=== PATIENT | female | born 1930 | race Caucasian/White ===

== ENCOUNTER 2016-08-06 01:53 | Outpatient (CLI) | payer MEDICARE, OTHER | END 2016-08-06 01:54 | disposition critical access hospital (66) | DX: R41.0 Disorientation, unspecified (principal); W18.30XA Fall on same level, unspecified, initial encounter; Y92.003 Bedroom of unspecified non-institutional (private) residence as the place of occurrence of the external cause | CPT/HCPCS: A0425; A0429 ==

== ENCOUNTER 2016-08-06 02:05 | Emergency (ER) | payer MEDICARE, OTHER | END 2016-08-06 03:45 | disposition home or self-care (01) | DX: R19.7 Diarrhea, unspecified (principal); W01.0XXA Fall on same level from slipping, tripping and stumbling without subsequent striking against object, initial encounter; Y92.013 Bedroom of single-family (private) house as the place of occurrence of the external cause; Z66 Do not resuscitate; I10 Essential (primary) hypertension; J45.909 Unspecified asthma, uncomplicated; G62.9 Polyneuropathy, unspecified; K21.9 Gastro-esophageal reflux disease without esophagitis; Z86.010 Personal history of colon polyps; M19.90 Unspecified osteoarthritis, unspecified site ==

== ENCOUNTER 2017-01-03 14:42 | Emergency (ER) | payer MEDICARE, OTHER ==
--- NOTE | 2017-01-03 16:12 | ED Physician Documentation ---
PD HPI Fall - Stated complaint Stated Complaint: HEAD INJ/ R ARM SCRAPE--FELL DOWN STAIRS - Chief complaint Chief Complaint: Neuro - History obtained from History obtained from: Patient, EMS - History of Present Illness Mechanism of injury: Slipped Fall distance: Other (stairs) Where injury occurred: Home Timing - onset: How many minutes ago (30) Injury(ies) location: Head, Right Upper Extremity (skin tear, no pain), Right Lower Extremity (skin tear and lacerations.) Pain level max: 2 Pain level now: 2 Quality of pain: Pain, Aching, Dull Associated symptoms: No: LOC, AMS, Amnesia, Seizures, Ear drainage, Nasal drainage, Neck pain, Weakness, Paresthesias, Dyspnea, Nausea / vomiting, Hematemesis, Abdominal distension Symptoms improve with: Rest Worsens with: Other (nothing) Contributing factors: No: Anticoagulated, Intoxicated - Additional information Additional information: slipped and fell backwards down the stairs, striking her head. Review of Systems Ten Systems: 10 systems reviewed and negative Constitutional: denies: Fever, Chills Eyes: denies: Photophobia Nose: denies: Rhinorrhea / runny nose, Congestion Throat: denies: Sore throat Cardiac: denies: Chest pain / pressure Respiratory: denies: Cough GI: denies: Abdominal Pain, Nausea, Vomiting, Diarrhea Skin: denies: Rash Musculoskeletal: denies: Neck pain, Back pain Neurologic: reports: Headache, Head injury. denies: Focal weakness, Numbness, Confused, Altered mental status, LOC PD PAST MEDICAL HISTORY - Past Medical History Cardiovascular: Hypertension, Arrhythmia Respiratory: Asthma, Pneumonia Neuro: Peripheral neuropathy Endocrine/Autoimmune: None GI: GERD, Colon polyps : Incontinence HEENT: Chronic vision loss Psych: Depression Musculoskeletal: Osteoarthritis, Scoliosis, Other Derm: None - Past Surgical History Past Surgical History: Yes General: Cholecystectomy, Appendectomy, Colonoscopy Ortho: Spine surgery, Other HEENT: Cataracts, Tonsil/Adenoidectomy Derm: Skin cancer surgery - Present Medications Home Medications: Ambulatory Orders Medication Instructions Recorded Confirmed Celecoxib [Celebrex] 200 mg PO DAILY 12/30/13 08/06/16 Duloxetine HCl [Cymbalta] 60 mg PO DAILY 12/30/13 08/06/16 Loratadine [Claritin] 10 mg PO DAILY 12/30/13 08/06/16 Montelukast Sodium [Singulair] 10 mg PO DAILY 12/30/13 08/06/16 Raloxifene [Evista] 60 mg PO DAILY 12/30/13 08/06/16 Pregabalin [Lyrica] 50 mg PO DAILY 08/26/14 08/06/16 Cholecalciferol [Vitamin D3] 2,000 unit PO DAILY 04/28/15 08/06/16 Multivitamin [Multivitamins] 1 cap PO DAILY 04/28/15 08/06/16 Folic Acid 1 tab PO DAILY 05/21/15 08/06/16 Omeprazole 20 mg PO DAILY 05/21/15 08/06/16 diltiaZEM [Cardizem] PO DAILY 08/06/16 - Allergies Allergies/Adverse Reactions: Allergies Allergy/AdvReac Type Severity Reaction Status Date / Time gluten Allergy Intermediate Cramps Verified 01/03/17 15:08 Sulfa (Sulfonamide Allergy Unknown Unknown Verified 01/03/17 15:08 Antibiotics) - Social History Does the pt smoke?: No Smoking Status: Never smoker Does the pt drink ETOH?: No Does the pt have substance abuse?: No - Immunizations Immunizations are current?: Yes - POLST Patient has POLST: No PD ED PE NORMAL - Vitals Vital signs reviewed: Yes - General General: Alert and oriented X 3, No acute distress, Well developed/nourished - HEENT HEENT: PERRL, EOMI, Ears normal, Moist mucous membranes, Pharynx benign, Other ( R parieto-occipital hematoma) - Neck Neck: Supple, no meningeal sign, No bony TTP - Cardiac Cardiac: RRR - Respiratory Respiratory: No respiratory distress, Clear bilaterally - Abdomen Abdomen: Soft, Non tender, Non distended - Back Back: No spinal TTP - Derm Derm: Warm and dry, No rash - Extremities Extremities: No deformity, No tenderness to palpate, Other (2 skin tears to R upper arm, 1 skin tear to the RLE and 1 large laceration to the lower RLE. ) - Neuro Neuro: Alert and oriented X 3, fan blade aligner 2-12 intact, No motor deficit, No sensory deficit, Normal speech GCS Score: 15 - Psych Psych: Normal mood, Normal affect Results - Vitals Vitals: Oxygen O2 Source [Without Activity] Room air O2 Source [With Activity] Room air O2 Source Room air - Rads (name of study) head CT Radiology: Prelim report reviewed, EMP read contemporaneously, See rad report ( Stable age-related cortical atrophic changes without evidence of acute intracranial abnormality or skull fracture.) Procedures - Laceration (location) RLE Length in cm: 5 Wound type: Curved, Irregular, Flap, Into subcut fat, Clean Neurovascular status: Sensory intact, Motor intact, Vascular intact Tendon involvement: No: Tendon Injury Anesthesia: OTH (declines lidocaine) Wound Preparation: Irrigated copiously NS Skin layer closure: [place] Other: Patient tolerated well, No complications, Neurovascular intact, Dressing applied, Tetanus UTD Complexity: Simple PD MEDICAL DECISION MAKING - ED course Complexity details: reviewed results, re-evaluated patient, considered differential, d/w patient, d/w family ED course: Patient is an 86-year-old female status post a fall down the stairs in which she struck her head repeatedly. She also has skin tears on the right upper extremity which were repaired with Steri-Strips after careful washing. The skin tear on the right lower extremity, upper thigh was also repaired with Steri -Strips. The laceration to the right lower leg was repaired with louisa. No acute findings on head CT. She is GCS 15 in the emergency department. Will have her follow-up with her PCP for further evaluation and care. No bony tenderness in any of her extremities. Full range of motion of all the major joints without pain. No spine tenderness. Will likely need wound care for the large laceration on the right lower extremity. Patient and family counseled regarding signs and symptoms for which I believe and urgent re-evaluation would be necessary. Patient with good understanding of and agreement to plan and is comfortable going home at this time This document was made in part using voice recognition software. While efforts are made to proofread this document, sound alike and grammatical errors may occur. Departure - Departure Disposition: 01 Home, Self Care Clinical Impression: Skin tear, Laceration Head injury Qualifiers: Encounter type: initial encounter Qualified Code(s): S09.90XA - Unspecified injury of head, initial encounter Scalp hematoma Qualifiers: Encounter type: initial encounter Qualified Code(s): S00.03XA - Contusion of scalp, initial encounter Condition: Good Instructions: ED Head Injury Closed, ED Hematoma, ED Laceration Ext Sutr Stap Tape Follow-Up: Dandy Ibarra MD [Primary Care Provider] - Within 1 week Comments: Return if you worsen. The louisa should be removed in 14-18 days. You will likely need to wound care to help your wounds heal and your doctor can refer you to wound care. Keep the wounds clean. Apply antibiotic ointment twice a day to the wound with louisa in it. Your blood pressure was elevated today on check in to the emergency department. This does not mean that you have hypertension, it is a common phenomenon to check into the emergency department and have elevated blood pressure. I recommend that you see your primary care physician within the week to have it rechecked when you're feeling better. Discharge Date/Time: 01/03/17 18:24
[2017-01-03] MEDS ORDERED: BACITRACIN OINT TOP ONE ×2 (16:29→18:20)
--- NOTE | 2017-01-03 17:34 | CT Preliminary Report ---
Exam: CT Head W/O IMPRESSION: Stable age-related cortical atrophic changes without evidence of acute intracranial abnor mality or skull fracture. [facility] SITE ID: [id number]
--- NOTE | 2017-01-03 17:37 | CT Report ---
EXAM: CT HEAD EXAM DATE: 01/03/2017 05:19 PM. CLINICAL HISTORY: Fall. Head injury. COMPARISON: 10/26/2014. TECHNIQUE: Multiaxial CT images were obtained from the foramen magnum to the vertex. IV contrast: Non e. Reformats: Coronal. In accordance with CT protocol optimization, one or more of the following dose reduction techniques w ere utilized for this exam: automated exposure control, adjustment of mA and/or KV based on patient s ize, or use of iterative reconstructive technique. FINDINGS: Parenchyma: No intraparenchymal hemorrhage. No evidence of mass, midline shift, or CT findings of acu te infarction. Thompson-white differentiation is distinct. Extraaxial Spaces: Normal for age. No subdural or epidural collections identified. Ventricles: The ventricles and cortical sulci are prominent, consistent with age-related tissue loss. Sinuses: Stable mucus retention cyst in the left sphenoid sinus, otherwise the imaged paranasal sinus es, orbits, and mastoids show no significant abnormality. Bones: No evidence of fracture or calvarial defect. Other: Stable chronic microangiopathic white matter changes are evident. Right lateral scalp hematoma noted. IMPRESSION: Stable age-related cortical atrophic changes without evidence of acute intracranial abnor mality or skull fracture. [facility] Referring Provider Line: [phone] SITE ID: [id number]
[2017-01-03 18:11] VITALS: BP 158/75
== END 2017-01-03 18:24 | disposition home or self-care (01) ==
LOC: ED 14:42
DX: S41.111A Laceration without foreign body of right upper arm, initial encounter (principal); S09.90XA Unspecified injury of head, initial encounter; S00.03XA Contusion of scalp, initial encounter; W10.9XXA Fall (on) (from) unspecified stairs and steps, initial encounter; Y92.009 Unspecified place in unspecified non-institutional (private) residence as the place of occurrence of the external cause; I10 Essential (primary) hypertension; G62.9 Polyneuropathy, unspecified
CPT/HCPCS: 12002; 70450; 99283; 99284; A9270

== ENCOUNTER 2017-07-18 17:39 | Outpatient (CLI) | payer MEDICARE, OTHER | END 2017-07-18 17:40 | disposition EMS.NT | LOC: EMS 17:39 | PROVIDERS: ATTEND Surgery | DX: R06.02 Shortness of breath (principal) ==

== ENCOUNTER 2018-01-02 08:00 | Outpatient (CLI) | payer MEDICARE, OTHER ==
[2018-01-02 15:00] LABS: BASOPHILS % (AUTO) 0.6 %; EOSINOPHILS # (AUTO) 0.1 10^3/uL (0.0-0.7); EOSINOPHILS % (AUTO) 2.4 %; HGB - HEMOGLOBIN 12.9 g/dL (12.0-16.0); LYMPHOCYTES # (AUTO) 0.8 10^3/uL (1.5-3.5); MEAN CORPUSCULAR HEMOGLOBIN 28.9 pg (27.0-31.0); MEAN CORPUSCULAR HGB CONC 33.3 g/dL (32.0-36.0); MEAN CORPUSCULAR VOLUME 86.7 fL (81.0-99.0); MEAN PLATELET VOLUME 8.1 fL (7.9-10.8); MONOCYTES # (AUTO) 0.6 10^3/uL (0.0-1.0); MONOCYTES % (AUTO) 10.5 %; NEUTROPHILS # (AUTO) 4.4 10^3/uL (1.5-6.6); NEUTROPHILS % (AUTO) 73.5 %; PLT - PLATELET COUNT 315 10^3/uL (130-450); RED BLOOD COUNT 4.47 10^6/uL (4.20-5.40); RED CELL DISTRIBUTION WIDTH 15.4 % (12.0-15.0)
[2018-01-02 16:35] LABS: ALBUMIN 3.8 g/dL (3.2-5.5); ALBUMIN/GLOBULIN RATIO 1.2 (1.0-2.2); BILIRUBIN,TOTAL 0.4 mg/dL (0.2-1.0); CALCIUM 8.8 mg/dL (8.5-10.3); CREATININE 0.7 mg/dL (0.4-1.0); TOTAL PROTEIN 7.1 g/dL (6.7-8.2)
== END 2018-01-02 08:01 | disposition home or self-care (01) ==
LOC: LAB.R 08:00
PROVIDERS: ATTEND Internal Medicine
DX: Z79.899 Other long term (current) drug therapy (principal); M81.0 Age-related osteoporosis without current pathological fracture; I10 Essential (primary) hypertension; J45.909 Unspecified asthma, uncomplicated
CPT/HCPCS: 80053; 84443; 85025

== ENCOUNTER 2018-05-21 14:43 | Emergency (ER) | payer MEDICARE, OTHER ==
[2018-05-21 15:50] LABS: BASOPHILS % (AUTO) 0.5 %; EOSINOPHILS # (AUTO) 0.1 10^3/uL (0.0-0.7); EOSINOPHILS % (AUTO) 1.2 %; HGB - HEMOGLOBIN 12.2 g/dL (12.0-16.0); LYMPHOCYTES # (AUTO) 0.4 10^3/uL (1.5-3.5); LYMPHOCYTES % (AUTO) 4.3 %; MEAN CORPUSCULAR HEMOGLOBIN 28.8 pg (27.0-31.0); MEAN CORPUSCULAR HGB CONC 33.7 g/dL (32.0-36.0); MEAN CORPUSCULAR VOLUME 85.5 fL (81.0-99.0); MEAN PLATELET VOLUME 6.7 fL (7.9-10.8); MONOCYTES # (AUTO) 0.7 10^3/uL (0.0-1.0); MONOCYTES % (AUTO) 7.5 %; NEUTROPHILS # (AUTO) 7.7 10^3/uL (1.5-6.6); NEUTROPHILS % (AUTO) 86.5 %; PLT - PLATELET COUNT 391 10^3/uL (130-450); RED BLOOD COUNT 4.22 10^6/uL (4.20-5.40); RED CELL DISTRIBUTION WIDTH 15.6 % (12.0-15.0)
[2018-05-21] MEDS: BACITRACIN OINT TOP STA (15:56)
[2018-05-21 16:10] LABS: BILIRUBIN,URINE NEGATIVE (NEGATIVE); GLUCOSE, URINE (UA) NEGATIVE (NEGATIVE); KETONES,URINE (UA) TRACE mg/dL (NEGATIVE); LEUKOCYTE ESTERASE, URINE NEGATIVE (NEGATIVE); NITRITE,URINE NEGATIVE (NEGATIVE); OCCULT BLOOD,URINE NEGATIVE (NEGATIVE); PROTEIN,URINE NEGATIVE (NEGATIVE); UROBILINOGEN,URINE 1 (NORMAL) E.U./dL (NORMAL)
[2018-05-21 16:11] LABS: CLARITY,URINE CLEAR (CLEAR)
[2018-05-21 16:15] LABS: ALBUMIN 3.6 g/dL (3.2-5.5); ALBUMIN/GLOBULIN RATIO 0.9 (1.0-2.2); BILIRUBIN,TOTAL 0.4 mg/dL (0.2-1.0); CALCIUM 8.8 mg/dL (8.5-10.3); CREATININE 0.6 mg/dL (0.4-1.0); TOTAL PROTEIN 7.5 g/dL (6.7-8.2)
--- NOTE | 2018-05-21 16:18 | ED Physician Documentation ---
PD HPI UPPER EXT INJURY - Stated complaint Stated Complaint: GLF/ ARM PX - Chief complaint Chief Complaint: Laceration - History obtained from History obtained from: Patient, EMS, Caregiver - History of Present Illness Location: Right, Arm Type of injury: Fall Where injury occurred: Home Timing - onset: How many hours ago (1) Timing - duration: Hours (1) Timing - details: Abrupt onset Pain level max: 2 Pain level now: 0 Improved by: Rest Worsened by: Moving, Palpating Associated symptoms: No: Weakness, Numbness, Tingling, Swelling, Discolored Contributing factors: Other (skin tears to the elbow) Similar symptoms before: Has not had sx before Recently seen: Not recently seen Review of Systems Constitutional: denies: Fever, Chills Respiratory: denies: Cough GI: denies: Nausea, Vomiting : denies: Dysuria Skin: denies: Rash Musculoskeletal: denies: Neck pain, Back pain Neurologic: denies: Headache PD PAST MEDICAL HISTORY - Past Medical History Past Medical History: Yes Cardiovascular: Hypertension, Arrhythmia Respiratory: Asthma, Pneumonia Endocrine/Autoimmune: None GI: GERD, Colon polyps : Incontinence HEENT: Chronic vision loss Psych: Depression Musculoskeletal: Osteoarthritis, Scoliosis, Other Derm: None - Past Surgical History Past Surgical History: Yes General: Cholecystectomy, Appendectomy, Colonoscopy Ortho: Spine surgery, Other HEENT: Cataracts, Tonsil/Adenoidectomy Derm: Skin cancer surgery - Present Medications Home Medications: Ambulatory Orders Medication Instructions Recorded Confirmed Celecoxib [Celebrex] 200 mg PO DAILY 12/30/13 08/06/16 Duloxetine HCl [Cymbalta] 60 mg PO DAILY 12/30/13 08/06/16 Loratadine [Claritin] 10 mg PO DAILY 12/30/13 08/06/16 Montelukast Sodium [Singulair] 10 mg PO DAILY 12/30/13 08/06/16 Raloxifene [Evista] 60 mg PO DAILY 12/30/13 08/06/16 Pregabalin [Lyrica] 50 mg PO DAILY 08/26/14 08/06/16 Cholecalciferol [Vitamin D3] 2,000 unit PO DAILY 04/28/15 08/06/16 Multivitamin [Multivitamins] 1 cap PO DAILY 04/28/15 08/06/16 Folic Acid 1 tab PO DAILY 05/21/15 08/06/16 Omeprazole 20 mg PO DAILY 05/21/15 08/06/16 Bacitracin Zinc Oint 1 applic TOP BID #1 tube 05/21/18 - Allergies Allergies/Adverse Reactions: Allergies Allergy/AdvReac Type Severity Reaction Status Date / Time gluten Allergy Intermediate Cramps Verified 05/21/18 14:51 Sulfa (Sulfonamide Allergy Unknown Unknown Verified 05/21/18 14:51 Antibiotics) - Social History Does the pt smoke?: No Smoking Status: Never smoker Does the pt drink ETOH?: No Does the pt have substance abuse?: No - Immunizations Immunizations are current?: Yes - POLST Patient has POLST: No PD ED PE NORMAL - Vitals Vital signs reviewed: Yes - General General: Alert and oriented X 3, No acute distress - HEENT HEENT: Moist mucous membranes - Neck Neck: Supple, no meningeal sign - Cardiac Cardiac: RRR - Respiratory Respiratory: No respiratory distress, Clear bilaterally - Derm Derm: Warm and dry - Extremities Extremities: Other (R arm - multiple skin tears. no bony tenderness. FROM witho ut pain.) - Neuro Neuro: Alert and oriented X 3 Results - Vitals Vitals: Vital Signs - 24 hr 05/21/18 05/21/18 14:48 16:30 Temperature 36.9 C Heart Rate 94 87 Respiratory 16 16 Rate Blood Pressure 165/79 H 145/62 H O2 Saturation 99 99 Oxygen O2 Source [Without Activity] Room air O2 Source [With Activity] Room air O2 Source Room air - Labs Labs: Laboratory Tests 05/21/18 05/21/18 05/21/18 15:40 15:40 16:00 WBC 9.0 RBC 4.22 Hgb 12.2 Hct 36.1 L MCV 85.5 MCH 28.8 MCHC 33.7 RDW 15.6 H Plt Count 391 MPV 6.7 L Neut # (Auto) 7.7 H Lymph # (Auto) 0.4 L Cole # (Auto) 0.7 Eos # (Auto) 0.1 Baso # (Auto) 0.0 Absolute Nucleated RBC 0.00 Nucleated RBC % 0.0 Sodium 131 L Potassium 4.1 Chloride 94 L Carbon Dioxide 29 Anion Gap 8.0 BUN 17 Creatinine 0.6 Estimated GFR (MDRD) 94 Glucose 134 H Calcium 8.8 Total Bilirubin 0.4 AST 32 ALT 18 Alkaline Phosphatase 73 Total Protein 7.5 Albumin 3.6 Globulin 3.9 Albumin/Globulin Ratio 0.9 L Lipase 25 Urine Color YELLOW Urine Clarity CLEAR Urine pH 7.0 Ur Specific [place] 1.020 Urine Protein NEGATIVE Urine Glucose (UA) NEGATIVE Urine Ketones TRACE Urine Occult Blood NEGATIVE Urine Nitrite NEGATIVE Urine Bilirubin NEGATIVE Urine Urobilinogen 1 (NORMAL) Ur Leukocyte Esterase NEGATIVE Ur Microscopic Review NOT INDICATED Urine Culture Comments NOT INDICATED PD MEDICAL DECISION MAKING - ED course Complexity details: reviewed results, re-evaluated patient, considered differential, d/w patient, d/w family ED course: 88-year-old female with 3 falls over the past week. Today she fell and sustained multiple skin tears to the right elbow and right upper arm. Full range of motion of the arm without pain. No bony tenderness. The wounds were cleansed and bandaged with Mepitel followed by gauze and bacitracin. Tolerated well. Will likely need wound care for these. No acute findings on urinalysis or laboratory testing. Further investigation was done because of her multiple falls. Patient counseled regarding signs and symptoms for which I believe and urgent re-evaluation would be necessary. Patient with good understanding of and agreement to plan and is comfortable going home at this time This document was made in part using voice recognition software. While efforts are made to proofread this document, sound alike and grammatical errors may occ ur. Departure - Departure Disposition: 01 Home, Self Care Clinical Impression: Avulsion, skin, Hyponatremia Fall Qualifiers: Encounter type: initial encounter Qualified Code(s): W19.XXXA - Unspecified fall, initial encounter Condition: Good Instructions: ED Avulsion Dermal Follow-Up: Payal Colby PA-C [Primary Care Provider] - Within 1 week Prescriptions: Bacitracin Zinc Oint 1 applic TOP BID #1 tube Comments: Make sure to follow-up with your doctor in 1 week for repeat evaluation of your wounds. Return if you worsen. You may require wound care from the wound clinic. This will require referral from your doctor. Return for redness, swelling or drainage from the wound. Discharge Date/Time: 05/21/18 16:30
[2018-05-21 16:30] VITALS: BP 145/62
== END 2018-05-21 16:30 | disposition home or self-care (01) ==
LOC: EDUNIT# → ED 14:43
DX: S51.011A Laceration without foreign body of right elbow, initial encounter (principal); S41.111A Laceration without foreign body of right upper arm, initial encounter; W19.XXXA Unspecified fall, initial encounter; I10 Essential (primary) hypertension; Z91.81 History of falling
CPT/HCPCS: 36415; 80053; 81001; 81003; 83690; 85025; 87086; 99283; 99284

== ENCOUNTER 2018-06-05 21:42 | Emergency (ER) | payer MEDICARE, OTHER ==
[2018-06-05] MEDS ORDERED: BUFFERED LIDOCAINE 10 ML SYRINGE SUBQ STA (22:03)
--- NOTE | 2018-06-05 22:06 | ED Physician Documentation ---
PD HPI HEAD INJURY - Stated complaint Stated Complaint: GLF/HEAD LAC - Chief complaint Chief Complaint: Laceration - History obtained from History obtained from: Patient, Family (daughter) - History of Present Illness Mechanism of head injury: Fell (Her walker got caught on something and she went down and hit her head on the coffee table. This was just an hour ago or so. She has a laceration on the top of the head. No loss of consciousness. She is not anticoagulated. There is no significant headache. No other injuries from this fall, but she does fall frequently and has some skin tears on the right upper extremity but not from tonight.) Review of Systems Constitutional: reports: Reviewed and negative Throat: reports: Reviewed and negative Cardiac: reports: Reviewed and negative Respiratory: reports: Reviewed and negative PD PAST MEDICAL HISTORY - Past Medical History Past Medical History: Yes Cardiovascular: Hypertension, Arrhythmia Respiratory: Asthma, Pneumonia Endocrine/Autoimmune: None GI: GERD, Colon polyps : Incontinence HEENT: Chronic vision loss Psych: Depression Musculoskeletal: Osteoarthritis, Scoliosis, Other Derm: None - Past Surgical History Past Surgical History: Yes General: Cholecystectomy, Appendectomy, Colonoscopy Ortho: Spine surgery, Other HEENT: Cataracts, Tonsil/Adenoidectomy Derm: Skin cancer surgery - Present Medications Home Medications: Ambulatory Orders Medication Instructions Recorded Confirmed Celecoxib [Celebrex] 200 mg PO DAILY 12/30/13 08/06/16 Duloxetine HCl [Cymbalta] 60 mg PO DAILY 12/30/13 08/06/16 Loratadine [Claritin] 10 mg PO DAILY 12/30/13 08/06/16 Montelukast Sodium [Singulair] 10 mg PO DAILY 12/30/13 08/06/16 Raloxifene [Evista] 60 mg PO DAILY 12/30/13 08/06/16 Pregabalin [Lyrica] 50 mg PO DAILY 08/26/14 08/06/16 Cholecalciferol [Vitamin D3] 2,000 unit PO DAILY 04/28/15 08/06/16 Multivitamin [Multivitamins] 1 cap PO DAILY 04/28/15 08/06/16 Folic Acid 1 tab PO DAILY 05/21/15 08/06/16 Omeprazole 20 mg PO DAILY 05/21/15 08/06/16 Bacitracin Zinc Oint 1 applic TOP BID #1 tube 05/21/18 - Allergies Allergies/Adverse Reactions: Allergies Allergy/AdvReac Type Severity Reaction Status Date / Time gluten Allergy Intermediate Cramps Verified 06/05/18 22:00 Sulfa (Sulfonamide Allergy Unknown Unknown Verified 06/05/18 22:00 Antibiotics) - Social History Does the pt smoke?: No Smoking Status: Never smoker Does the pt drink ETOH?: No Does the pt have substance abuse?: No - Immunizations Immunizations are current?: Yes - POLST Patient has POLST: No PD ED PE NORMAL - Vitals Vital signs reviewed: Yes - General General: Alert and oriented X 3, No acute distress - HEENT HEENT: PERRL, EOMI, Other (There is a 4 cm laceration that is horizontal and basically on the vertex of the head without active bleeding.) - Neck Neck: Supple, no meningeal sign, No bony TTP - Neuro Neuro: Alert and oriented X 3, marketing data specialist 2-12 intact Eye Opening: Spontaneous Motor: Obeys Commands Verbal: Oriented GCS Score: 15 - Psych Psych: Normal mood, Normal affect Results - Vitals Vitals: Vital Signs - 24 hr 06/05/18 21:47 Temperature 36.3 C L Heart Rate 103 H Respiratory 16 Rate Blood Pressure 151/76 H O2 Saturation 97 Oxygen O2 Source [] Room air O2 Source [] Room air O2 Source Room air - Rads (name of study) CT Head Radiology: EMP read contemporaneously (atrophy, NAD) CT Cspine Radiology: EMP read contemporaneously (DDD/DJD NAD) Procedures - Laceration (location) scalp Length in cm: 4 Wound type: Curved Anesthesia: Lidocaine 1%, With bicarb Wound Preparation: Irrigated copiously NS, Debrided extensively, Wound explored, To the base Skin layer closure: [place] Other: Tetanus UTD Complexity: Simple Departure - Departure Disposition: 01 Home, Self Care Clinical Impression: Laceration Head injury Qualifiers: Encounter type: initial encounter Qualified Code(s): S09.90XA - Unspecified injury of head, initial encounter Condition: Good Record reviewed to determine appropriate education?: Yes Instructions: ED Head Injury Closed, ED Laceration Scalp Stitch Or Stap Comments: Come back for any signs of infection which would include: Redness, swelling, drainage, increased pain, or fevers. Follow-up with your physician in 7-10 days for staple removal.
--- NOTE | 2018-06-05 22:57 | CT Report ---
Reason: fall, head inj Procedure Date: 06/05/2018 Accession Number: [id number] / [id number] Procedure: CT - HEAD WO CPT Code: FULL RESULT: EXAM: CT HEAD EXAM DATE: 06/05/2018 10:24 PM. CLINICAL HISTORY: Fall with head injury COMPARISON: 01/03/2017. TECHNIQUE: Multiaxial CT images were obtained from the foramen magnum to the vertex. Reformats: Sagittal and coronal. IV contrast: None. In accordance with CT protocol optimization, one or more of the following dose reduction techniques were utilized for this exam: automated exposure control, adjustment of mA and/or KV based on patient size, or use of iterative reconstructive technique. FINDINGS: Parenchyma: No intraparenchymal hemorrhage. No evidence of mass, midline shift, or CT findings of acute infarction. Thompson-white differentiation is distinct. Diffuse chronic microangiopathic white matter changes are evident. Extraaxial Spaces: Normal for age. No subdural or epidural collections identified. Ventricles: The ventricles and cortical sulci are enlarged, consistent with age-related tissue loss. Sinuses and orbits: Imaged paranasal sinuses, orbits, and mastoids show no significant abnormality. Bones: No evidence of fracture or calvarial defect. Other: Scalp laceration near the vertex. IMPRESSION: Generalized age-related cortical atrophic changes without evidence of acute intracranial abnormality. [facility]
--- NOTE | 2018-06-05 23:02 | CT Report ---
Reason: fall, head inj Procedure Date: 06/05/2018 Accession Number: [id number] / [id number] Procedure: CT - CERVICAL SPINE WO CPT Code: FULL RESULT: EXAM: CT CERVICAL SPINE WITHOUT CONTRAST DATE: 06/05/2018 10:38 PM. HISTORY: Fall with head injury. COMPARISONS: None. TECHNIQUE: Thin-section axial images were acquired of the cervical spine without contrast. Post-processing: Coronal and sagittal reformats. Other: None. In accordance with CT protocol optimization, one or more of the following dose reduction techniques were utilized for this exam: automated exposure control, adjustment of mA and/or KV based on patient size, or use of iterative reconstructive technique. FINDINGS: Alignment: Slight anterolisthesis at C2-C3, likely chronic. Bones: No fracture or bone lesion. Interspace Levels/Facets: C1-C2: Unremarkable. C2-C3: Left-sided facet osteoarthritis C3-C4: Severe disk space narrowing. Ankylosis across the disk space. Severe right-sided foraminal stenosis. C4-C5: Severe disk space narrowing. Endplate osteophyte mildly narrows the central canal. Severe right-sided foraminal stenosis. C5-C6: Severe disk space narrowing. Endplate osteophyte mildly narrows the central canal. Severe right-sided foraminal stenosis. C6-C7: Severe disk space narrowing. Uncinate process hypertrophy severely narrows the right foramen. C7-T1: Unremarkable. Musculature: Normal. No fatty atrophy. Other: The paravertebral and prevertebral soft tissues are unremarkable. Calcified granuloma left lung apex. 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 No fracture identified. [facility]
[2018-06-05 23:09] VITALS: BP 154/66
== END 2018-06-05 23:10 | disposition home or self-care (01) ==
LOC: ED 21:42
DX: S01.01XA Laceration without foreign body of scalp, initial encounter (principal); S09.90XA Unspecified injury of head, initial encounter; W18.30XA Fall on same level, unspecified, initial encounter; W22.09XA Striking against other stationary object, initial encounter; W23.0XXA Caught, crushed, jammed, or pinched between moving objects, initial encounter; Y93.01 Activity, walking, marching and hiking; I10 Essential (primary) hypertension; Z91.81 History of falling
CPT/HCPCS: 12002; 70450; 72125; 99282; 99283